=== PATIENT | female | born 1955 | race Two or more races ===

== ENCOUNTER → 2017-04-05 16:58 | Outpatient (CLI) | payer OTHER | END | disposition home or self-care (01) | LOC: LAB 16:58 | DX: J11.1 Influenza due to unidentified influenza virus with other respiratory manifestations (principal) ==

== ENCOUNTER → 2017-04-05 | Outpatient (CLI) | payer OTHER ==
[~2017-04-05] VITALS: Ht 152.4 cm; Wt 54.4 kg
[~2017-04-05] MED LIST: CIPRO500 MG PO; FLEXERIL10 MG PO; FLONASE16 GM NS; MEDROL4 MG PO; RELAGESIC TABL1 EACH PO; TESSALON PERLE100 MG PO; ULTRAM50 MG PO; ZYRTEC10 M3 PO; ZYRTEC10 MG PO
== END | disposition home or self-care (01) ==
LOC: PPHC 15:29
DX: J06.9 Acute upper respiratory infection, unspecified (principal); Z01.89 Encounter for other specified special examinations

== ENCOUNTER → 2017-05-10 16:48 | Outpatient (CLI) | payer OTHER | END | disposition home or self-care (01) | LOC: LAB 16:48 | DX: R50.9 Fever, unspecified (principal) ==

== ENCOUNTER → 2017-05-10 | Outpatient (CLI) | payer OTHER | END | disposition home or self-care (01) | LOC: PPHC 15:46 | DX: Z01.89 Encounter for other specified special examinations (principal) ==

== ENCOUNTER 2017-11-02 08:49 | Outpatient (CLI) | payer OTHER | END 2017-11-02 08:53 | disposition home or self-care (01) | LOC: LAB 08:49 | DX: Z11.3 Encounter for screening for infections with a predominantly sexual mode of transmission (principal) ==

== ENCOUNTER → 2017-11-05 | Outpatient (CLI) | payer OTHER | END | disposition home or self-care (01) | LOC: EKG 11-04 12:02 | DX: R07.89 Other chest pain (principal) ==

== ENCOUNTER 2017-12-20 14:27 | Outpatient (CLI) | payer OTHER | END 2017-12-20 14:33 | disposition home or self-care (01) | LOC: RAD 14:27 | DX: M54.2 Cervicalgia (principal) ==

== ENCOUNTER 2018-05-16 07:57 | Outpatient (CLI) | payer OTHER | END 2018-05-16 08:05 | disposition home or self-care (01) | LOC: LAB 07:57 | DX: R10.84 Generalized abdominal pain (principal); N39.0 Urinary tract infection, site not specified ==

== ENCOUNTER → 2018-05-16 | Outpatient (CLI) | payer OTHER | END | disposition home or self-care (01) | LOC: SONOGRAMA 08:28 | DX: R10.13 Epigastric pain (principal) ==

== ENCOUNTER 2018-06-07 11:32 | Outpatient (CLI) | payer OTHER | END 2018-06-07 11:46 | disposition home or self-care (01) | LOC: LAB 11:32 | DX: R73.03 Prediabetes (principal); N39.0 Urinary tract infection, site not specified ==

== ENCOUNTER 2018-07-01 12:17 | Emergency (ER) | payer OTHER ==
[~2018-07-01] VITALS: Ht 152.4 cm; Wt 64.9 kg
== END 2018-07-01 16:16 | disposition home or self-care (01) ==
LOC: ER 12:17
DX: R51 Headache (principal)

== ENCOUNTER 2018-11-17 16:15 | Outpatient (CLI) | payer OTHER | END 2018-11-17 18:00 | disposition home or self-care (01) | LOC: LAB 16:15 → CERTIFICAD 16:15 | DX: Z11.1 Encounter for screening for respiratory tuberculosis (principal) ==

== ENCOUNTER 2019-02-11 08:20 | Outpatient (CLI) | payer OTHER | END 2019-02-11 09:31 | disposition home or self-care (01) | LOC: LAB 08:20 | DX: E78.49 Other hyperlipidemia (principal); E55.9 Vitamin D deficiency, unspecified; R42 Dizziness and giddiness; R51 Headache; Z00.00 Encounter for general adult medical examination without abnormal findings ==

== ENCOUNTER 2019-02-11 09:29 | Outpatient (CLI) | payer OTHER | END 2019-02-11 09:35 | disposition home or self-care (01) | LOC: MAMO-SONO 09:29 | DX: N64.4 Mastodynia (principal); Z12.31 Encounter for screening mammogram for malignant neoplasm of breast ==

== ENCOUNTER 2019-03-03 09:00 | Outpatient (CLI) | payer OTHER | END 2019-03-03 10:12 | disposition home or self-care (01) | LOC: LAB 09:00 | DX: J11.1 Influenza due to unidentified influenza virus with other respiratory manifestations (principal) ==

== ENCOUNTER 2022-10-19 11:54 | Outpatient (CLI) | payer OTHER | END 2022-10-19 11:58 | disposition home or self-care (01) | LOC: RAD 11:54 | PROVIDERS: ATTEND Physical Medicine & Rehabilitation Hospice and Palliative Medicine | DX: M25.511 Pain in right shoulder (principal); M54.2 Cervicalgia ==

== ENCOUNTER 2022-11-02 12:56 | Outpatient (CLI) | payer OTHER | END 2022-11-02 13:10 | disposition home or self-care (01) | LOC: MRI 12:56 | PROVIDERS: ATTEND Physical Medicine & Rehabilitation Hospice and Palliative Medicine | DX: M54.2 Cervicalgia (principal) | CPT/HCPCS: 72141 ==

== ENCOUNTER 2022-11-13 11:24 | Outpatient (CLI) | payer OTHER | END 2022-11-13 11:36 | disposition home or self-care (01) | LOC: MAMO-SONO 11:24 | PROVIDERS: ATTEND Internal Medicine | DX: Z12.31 Encounter for screening mammogram for malignant neoplasm of breast (principal); N63.0 Unspecified lump in unspecified breast ==

== ENCOUNTER 2022-11-13 12:47 | Outpatient (CLI) | payer OTHER | END 2022-11-13 12:55 | disposition home or self-care (01) | LOC: NUCLEAR 12:47 | PROVIDERS: ATTEND Internal Medicine | DX: M81.0 Age-related osteoporosis without current pathological fracture (principal) ==

== ENCOUNTER 2023-10-31 10:09 | Outpatient (CLI) | payer OTHER | END 2023-10-31 10:21 | disposition home or self-care (01) | LOC: MRI 10:09 | PROVIDERS: ATTEND Internal Medicine | DX: M25.562 Pain in left knee (principal); M54.41 Lumbago with sciatica, right side | CPT/HCPCS: 72148 ==

== ENCOUNTER 2023-12-04 08:55 | Outpatient (CLI) | payer OTHER | END 2023-12-04 09:02 | disposition home or self-care (01) | LOC: SONOGRAMA 08:55 | PROVIDERS: ATTEND Internal Medicine Gastroenterology | DX: R10.13 Epigastric pain (principal) ==

== ENCOUNTER 2023-12-04 09:33 | Outpatient (CLI) | payer OTHER ==
[2023-12-04 10:32] LABS: URINE APPEARANCE Clear; URINE BILIRRUBIN Negative (NEGATIVE); URINE BLOOD Moderate; URINE COLOR Dark Yellow; URINE GLUCOSE Negative (NEGATIVE); URINE KETONE Negative (NEGATIVE); URINE LEUKOCYTE Trace; URINE NITRATE Negative; URINE PROTEIN Negative (NEGATIVE); URINE UROBILINOGEN 0.2 E.U./dl
[2023-12-04 10:37] LABS: URINE BACTERIA 11.3 uL (0.0-1933); URINE EPITHELIAL CELLS 14.5 uL (0.0-38.8); URINE RBC 156.8 uL (0.0-20.8); URINE WBC 10.6 uL (0.0-23.2)
[2023-12-04 10:49] LABS: URINE CAST 0.61 uL (0.0-1.40)
[2023-12-04 10:52] LABS: HEMATOCRIT 42.3 % (36.0-45.00); HEMOGLOBIN 14.5 g/dL (12.0-15.00); MEAN CELL VOLUME 88.2 fL (80.00-100.00); MEAN CORPUSCULAR HEMOGLOBIN 30.3 pg (27.00-32.0); MEAN CORPUSCULAR HGB CONC 34.3 g/dl (32.0-36.0); PLATELET COUNT 231 K/uL (150-450); RED BLOOD COUNT 4.79 M/uL (4.00-6.00); RED CELL DISTRIBUTION WIDTH 14.1 % (11.5-14.5)
[2023-12-04 11:40] LABS: ALBUMIN 3.9 gm/dL (3.4-5.0); BILIRUBIN TOTAL 0.63 mg/dL (0.3-1.2); CALCIUM 9.3 mg/dL (8.5-10.1); CREATININE SERUM 0.59 mg/dL (0.55-1.02); GFR 101.98; GLOBULINA 3.5 G/DL (2.4-3.5); POTASSIUM 4.53 mEq/L (3.5-5.1); TOTAL PROTEIN 7.4 gm/dL (6.4-8.2); TSH 0.771 uIU/mL (0.358-3.74)
== END 2023-12-04 09:38 | disposition home or self-care (01) ==
LOC: LAB 09:33
PROVIDERS: ATTEND Internal Medicine Gastroenterology
DX: K29.00 Acute gastritis without bleeding (principal); K21.9 Gastro-esophageal reflux disease without esophagitis; R10.13 Epigastric pain; Z12.11 Encounter for screening for malignant neoplasm of colon

== ENCOUNTER 2024-05-06 10:10 | Outpatient (CLI) | payer OTHER ==
[~2024-05-06 10:10] MED LIST changes: +NABUMETONE750 MG PO; +PREGABALIN25 MG PO
== END 2024-05-06 10:16 | disposition home or self-care (01) ==
LOC: MAMO-SONO 10:10
PROVIDERS: ATTEND Internal Medicine
DX: N64.9 Disorder of breast, unspecified (principal); Z12.31 Encounter for screening mammogram for malignant neoplasm of breast

== ENCOUNTER 2024-06-10 11:54 | Outpatient (CLI) | payer OTHER ==
[2024-06-19] MEDS ORDERED: CELEBREX200MG PO (11:13)
[2024-06-19] MEDS ORDERED: METHOCARBAMOL500 MG PO (11:13)
== END 2024-06-10 12:07 | disposition home or self-care (01) ==
LOC: MRI 11:54
PROVIDERS: ATTEND Internal Medicine
DX: M54.41 Lumbago with sciatica, right side (principal)
CPT/HCPCS: 72148

== ENCOUNTER 2024-08-14 10:56 | Outpatient (CLI) | payer OTHER ==
[~2024-08-14 10:56] MED LIST changes: +CELEBREX200MG PO; +METHOCARBAMOL500 MG PO
== END 2024-08-14 11:13 | disposition home or self-care (01) ==
LOC: MRI 10:56
PROVIDERS: ATTEND Physical Medicine & Rehabilitation
DX: M25.561 Pain in right knee (principal)
CPT/HCPCS: 73721

== ENCOUNTER 2025-02-19 08:12 | Outpatient (CLI) | payer OTHER | END 2025-02-19 08:17 | disposition home or self-care (01) | LOC: SONOGRAMA 08:12 | PROVIDERS: ATTEND Physical Medicine & Rehabilitation | DX: N28.1 Cyst of kidney, acquired (principal) ==